=== PATIENT | female | born 1990 | race Caucasian/White ===

== ENCOUNTER 2017-02-05 11:21 | Emergency (ER) ==
[2017-02-05 11:33] VITALS: BP 143/85; TEMP 101.3; BMI 38.8
[2017-02-05 11:59] LABS: BASOPHILS % (AUTO) 0.5 % (0.0-3.0); EOSINOPHILS % (AUTO) 0.5 % (0.0-7.0); HEMATOCRIT 31.6 % (37.0-47.0); HEMOGLOBIN 10.8 g/dl (12.0-16.0); IMMATURE GRANULOCYTE % (AUTO) 0.8 % (0.0-5.0); LYMPHOCYTES # (AUTO) 0.4 K/uL (0.60-3.4); LYMPHOCYTES % (AUTO) 11.8 (10.0-50.0); MEAN CORPUSCULAR HEMOGLOBIN 27.7 pg (27.0-31.0); MEAN CORPUSCULAR HGB CONC 34.2 (31.8-35.4); MONOCYTES # (AUTO) 0.4 K/uL (0.4-2.0); MONOCYTES % (AUTO) 11.2 (0-10); NEUTROPHILS # (AUTO) 2.7 K/ul (2.0-6.9); NEUTROPHILS % (AUTO) 75.2; PLATELET COUNT 189 10^3/uL (140-440); WHITE BLOOD COUNT 3.65 K/ul (4.6-10.2)
[2017-02-05 12:08] LABS: BILIRUBIN,URINE Negative (NEGATIVE); KETONES,URINE Negative (NEGATIVE); LEUKOCYTE ESTERASE ,URINE Negative (NEGATIVE); NITRITE,URINE Negative (NEGATIVE); PH,URINE 8.5 (5-9); PROTEIN,URINE Negative (NEGATIVE); URINE, BLOOD Negative (NEGATIVE)
[2017-02-05 12:09] LABS: ADD URINE MICROSCOPIC NO; URINE PREGNANCY INTERNAL QC INTERNAL QC VALID
[2017-02-05 12:13] LABS: FLU INTERNAL QC INTERNAL QC VALID; RAPID FLU A NEGATIVE (NEGATIVE); RAPID FLU B NEGATIVE (NEGATIVE)
[2017-02-05 12:16] LABS: ALBUMIN 3.6 g/dL (3.4-5.0); ALBUMIN/GLOBULIN RATIO 0.95; ANION GAP 12.9; BILIRUBIN,TOTAL 0.41 mg/dL (0.00-1.20); BUN/CREATININE RATIO 9.58; CREATININE 0.73 mg/dL (0.60-1.30); POTASSIUM 3.9 mmol/L (3.5-5.10); TOTAL PROTEIN 7.4 g/dL (6.4-8.2)
--- NOTE | 2017-02-05 12:39 | DI ---
EXAM: Chest two view, frontal and lateral views. HISTORY: Cough. COMPARISON: 12/26/2012. FINDINGS: The heart size is normal. There is no pulmonary vascular congestion. The lungs are clear save for calcified granulomatous changes. No pleural effusion or pneumothorax is seen. No acute os seous abnormality identified. Since the prior study, there has been no significant interval change. IMPRESSION: No acute cardiopulmonary process.
--- NOTE | 2017-02-05 12:46 | ED.PDOC ---
General ED Provider: Dr. BRIANDA JIMENEZ Chief Complaint: Fever Stated Complaint: fever , cough , chills Time Seen by Physician: 11:30 Mode of Arrival: Walk-In Information Source: Patient Exam Limitations: No limitations [facility] Nursing and Triage Documentation Reviewed and Agree: Yes Respiratory Complaint Exam - Shortness of Air Complaint/Exam Symptoms Are: Resolved Initial Severity: Mild Current Severity: None Aggravating: Reports: None Alleviating: Reports: None History of Healthcare-Acquired Pneumonia: No Pulmonary Embolism Risk Factors: Reports: None Cardiac Risk Factors: Reports: None Pseudomonas Risk Factors: Reports: None Tuberculosis Risk Factors: Reports: None Home Oxygen Use: No Recent Stress Test: No Recent Echo/LV Function: No Respiratory Distress: None Stridor Present: No Tracheal Deviation: No Subcutaneous Emphysema: No Accessory Muscle Use: No Retractions: Not Present Diminished Breath Sounds: No Prolonged Expiratory Phase: No Unable to Speak Full Sentences: No Fatigue: No Leg Swelling: No Johnathon's Sign Present: No Grunting Respirations: No Kussmaul Respirations: No Differential Diagnoses: Pneumonia, Bronchitis Review of Systems - Review Of Systems Constitutional: Reports: No symptoms Eyes: Reports: No symptoms Ears, Nose, Mouth, Throat: Reports: No symptoms Respiratory: Reports: Cough Cardiac: Reports: No symptoms GI: Reports: No symptoms : Reports: No symptoms Musculoskeletal: Reports: No symptoms Skin: Reports: No symptoms Neurological: Reports: No symptoms Endocrine: Reports: No symptoms Hematologic/Lymphatic: Reports: No symptoms All Other Systems: Reviewed and Negative Past Medical History - Past Medical History Previously Healthy: Yes Endocrine: Reports: None Cardiovascular: Reports: None Respiratory: Reports: None Hematological: Reports: None Gastrointestinal: Reports: None Genitourinary: Reports: None Neuro/Psych: Reports: None Musculoskeletal: Reports: None Cancer: Reports: None Last Menstrual Period: 2.5 weeks ago, IUD - Surgical History General Surgical History: Reports: Unknown - Family History Family History: Reports: Unknown - Social History Smoking Status: Former smoker Hx Substance Use: No Alcohol Screening: None Physical Exam - Physical Exam Appearance: Well-appearing, No pain distress, Well-nourished Eyes: JACE, EOMI, Conjunctiva clear ENT: Ears normal, Nose normal, Oropharynx normal Respiratory: Airway patent, Breath sounds clear, Breath sounds equal, Respirations nonlabored Cardiovascular: RRR, Pulses normal, No rub, No murmur GI/: Soft, Nontender, No masses, Bowel sounds normal, No Organomegaly Musculoskeletal: Normal strength, ROM intact, No edema, No calf tenderness Skin: Warm, Dry, Normal color Neurological: Sensation intact, Motor intact, Reflexes intact, Cranial nerves intact, Alert, Oriented Psychiatric: Affect appropriate, Mood appropriate Interpretation - Radiology Interpretation Radiology Interpretation By: Radiologist Radiology Results: No acute changes Critical Care Note - Critical Care Note Total Time (mins): 0 Course - Course Hematology/Chemistry: 02/05/17 11:50 02/05/17 11:50 Orders, Labs, Meds: Lab Review 02/05/17 02/05/17 02/05/17 11:45 11:45 11:45 WBC RBC Hgb Hct MCV MCH MCHC RDW Coeff of Juan Plt Count Immature Gran % (Auto) Neut % (Auto) Lymph % (Auto) [place] % (Auto) Eos % (Auto) Baso % (Auto) Immature Gran # (Auto) Neut # Lymph # [place] # Eos # Baso # Sodium Potassium Chloride Carbon Dioxide Anion Gap BUN Creatinine Estimated GFR (MDRD) BUN/Creatinine Ratio Glucose Lactic Acid Calcium Total Bilirubin AST ALT Alkaline Phosphatase Total Protein Albumin Globulin Albumin/Globulin Ratio Procalcitonin Urine Color Yellow Urine Clarity Clear Urine pH 8.5 Ur Specific [place] 1.020 Urine Protein Negative Urine Glucose (UA) Negative Urine Ketones Negative Urine Blood Negative Urine Nitrite Negative Urine Bilirubin Negative Urine Urobilinogen 0.2 Ur Leukocyte Esterase Negative Urine Test Negative Influenza A (Rapid) Negative Influenza B (Rapid) Negative 02/05/17 02/05/17 02/05/17 11:50 11:50 11:50 WBC 3.65 L RBC 3.90 L Hgb 10.8 L Hct 31.6 L MCV 81.0 MCH 27.7 MCHC 34.2 RDW Coeff of Juan 13.4 Plt Count 189 Immature Gran % (Auto) 0.8 Neut % (Auto) 75.2 Lymph % (Auto) 11.8 [place] % (Auto) 11.2 H Eos % (Auto) 0.5 Baso % (Auto) 0.5 Immature Gran # (Auto) 0.0 Neut # 2.7 Lymph # 0.4 L [place] # 0.4 Eos # 0.0 Baso # 0.0 Sodium 137 Potassium 3.9 Chloride 105 Carbon Dioxide 23 Anion Gap 12.9 BUN 7 Creatinine 0.73 Estimated GFR (MDRD) 95.00 BUN/Creatinine Ratio 9.58 Glucose 102 Lactic Acid 6.5 Calcium 9.0 Total Bilirubin 0.41 AST 61 H ALT 81 H Alkaline Phosphatase 122 H Total Protein 7.4 Albumin 3.6 Globulin 3.8 Albumin/Globulin Ratio 0.95 Procalcitonin Urine Color Urine Clarity Urine pH Ur Specific [place] Urine Protein Urine Glucose (UA) Urine Ketones Urine Blood Urine Nitrite Urine Bilirubin Urine Urobilinogen Ur Leukocyte Esterase Urine Test Influenza A (Rapid) Influenza B (Rapid) 02/05/17 11:50 WBC RBC Hgb Hct MCV MCH MCHC RDW Coeff of Juan Plt Count Immature Gran % (Auto) Neut % (Auto) Lymph % (Auto) [place] % (Auto) Eos % (Auto) Baso % (Auto) Immature Gran # (Auto) Neut # Lymph # [place] # Eos # Baso # Sodium Potassium Chloride Carbon Dioxide Anion Gap BUN Creatinine Estimated GFR (MDRD) BUN/Creatinine Ratio Glucose Lactic Acid Calcium Total Bilirubin AST ALT Alkaline Phosphatase Total Protein Albumin Globulin Albumin/Globulin Ratio Procalcitonin 0.06 Urine Color Urine Clarity Urine pH Ur Specific [place] Urine Protein Urine Glucose (UA) Urine Ketones Urine Blood Urine Nitrite Urine Bilirubin Urine Urobilinogen Ur Leukocyte Esterase Urine Test Influenza A (Rapid) Influenza B (Rapid) Orders Category Date Time Status BLOOD CULTURE Stat LAB 02/05/17 12:18 Received CBC W/ AUTO DIFF Stat LAB 02/05/17 11:50 Completed COMPREHENSIVE METABOLIC PANEL Stat LAB 02/05/17 11:50 Completed HEPATITIS PANEL, ACUTE Stat LAB 02/05/17 11:50 Received LACTIC ACID Stat LAB 02/05/17 11:50 Completed MOLECULAR GROUP A STREP Stat LAB 02/05/17 11:45 Results PROCALCITONIN Stat LAB 02/05/17 11:50 Completed RAPID FLU A/B Stat LAB 02/05/17 11:45 Completed STREP SCREEN Stat LAB 02/05/17 11:45 Results URINALYSIS C & S IF INDICATED Stat LAB 02/05/17 11:45 Completed URINE Stat LAB 02/05/17 11:45 Completed CHEST, 2 VIEWS PA & LAT Stat RADS 02/05/17 11:38 Completed Vital Signs: Temp Pulse Resp BP Pulse Ox 02/05/17 11:29 101.3 F H 111 H 18 143/85 H 97 Departure - Departure Time of Disposition: 12:45 (nurses were present at bedside ) Disposition: HOME SELF-CARE Discharge Problem: Viral syndrome, Abnormal liver function tests Instructions: Viral Syndrome (ED) Condition: Good Pt referred to PMD for follow-up: Yes Additional Instructions: Please call your Family Physician as soon as possible to schedule a follow-up appointment. Allergies/Adverse Reactions: Allergies Sulfa (Sulfonamide Antibiotics) Allergy (Severe, Verified 02/05/17 11:34) ITCHING ALL OVER codeine Adverse Reaction (Verified 02/05/17 11:34) Penicillins Adverse Reaction (Verified 02/05/17 11:34) tioconazole [From Monistat 1 (tioconazole)] Adverse Reaction (Verified 02/05/17 11:34) Swelling Home Medications: Ambulatory Orders 1 [No Reported Medications] 02/05/17
== END 2017-02-05 12:54 | disposition home or self-care (01) ==
LOC: ED 11:21
DX: B34.9 Viral infection, unspecified (principal); R94.5 Abnormal results of liver function studies
CPT/HCPCS: 36415; 80053; 80074; 81001; 81025; 83605; 84145; 85025; 87040; 87651; 87804; 87880; 99282

== ENCOUNTER 2017-02-21 09:24 | Outpatient (CLI) ==
[2012-10-19 17:09] VITALS: TEMP 96.8
--- NOTE | 2017-02-21 10:01 | US ---
EXAM: Ultrasound abdomen limited. HISTORY: Elevated liver enzymes. COMPARISON: None available. TECHNIQUE: Abdominal, real time with image documentation: limited (eg, single organ, quadrant, foll ow-up) FINDINGS: The liver demonstrates homogeneous echotexture without intrahepatic biliary dilatation. P ortal venous flow is normal in direction. The gallbladder is without shadowing stones, wall thickeni ng or pericholecystic fluid. Common duct measures approximately 0.3 cm. Visualized portions of the pancreas are unremarkable. IMPRESSION: No sonographic abnormality of the liver, gallbladder or biliary system.
== END 2017-02-21 09:25 | disposition home or self-care (01) ==
LOC: RAD 09:24
PROVIDERS: ATTEND Nurse Practitioner Family
DX: R79.89 Other specified abnormal findings of blood chemistry (principal)

== ENCOUNTER 2017-02-26 14:34 | Outpatient (CLI) ==
[2012-10-19 17:09] VITALS: TEMP 96.8
[2017-02-26 14:45] LABS: BASOPHILS # (AUTO) 0.1 K/uL (0-0.2); BASOPHILS % (AUTO) 0.7 % (0.0-3.0); EOSINOPHILS # (AUTO) 0.2 K/ul (0.0-0.7); EOSINOPHILS % (AUTO) 2.4 % (0.0-7.0); HEMOGLOBIN 10.9 g/dl (12.0-16.0); IMMATURE GRANULOCYTE % (AUTO) 0.7 % (0.0-5.0); IMMATURE RETIC FRACTION 22.5; LYMPHOCYTES # (AUTO) 2.2 K/uL (0.60-3.4); LYMPHOCYTES % (AUTO) 32.2 (10.0-50.0); MEAN CORPUSCULAR HEMOGLOBIN 27.3 pg (27.0-31.0); MEAN CORPUSCULAR VOLUME 82.7 fl (81.0-99.0); MONOCYTES # (AUTO) 0.4 K/uL (0.4-2.0); MONOCYTES % (AUTO) 5.8 (0-10); NEUTROPHILS # (AUTO) 3.9 K/ul (2.0-6.9); NEUTROPHILS % (AUTO) 58.2; PLATELET COUNT 291 10^3/uL (140-440); RED BLOOD COUNT 3.99 10^6/ul (4.20-5.40); RETICULOCYTE % 2.18 %; WHITE BLOOD COUNT 6.67 K/ul (4.6-10.2)
[2017-02-26 16:42] LABS: ALBUMIN 3.6 g/dL (3.4-5.0); ALBUMIN/GLOBULIN RATIO 1.03; ANION GAP 12.8; BILIRUBIN,TOTAL 0.45 mg/dL (0.00-1.20); BUN/CREATININE RATIO 12.65; CREATININE 0.79 mg/dL (0.60-1.30); FERRITIN 15.67 ng/mL (4.63-204.00); FOLATE 9.4 ng/mL (3.1-20.5); POTASSIUM 3.8 mmol/L (3.5-5.10); TOTAL PROTEIN 7.1 g/dL (6.4-8.2)
[2017-02-27 06:11] LABS: GAMMA GLUTAMYL TRANSFERASE 28 IU/L (0-60)
[2017-02-27 07:21] LABS: TRANSFERRIN 266 mg/dL (200-370)
== END 2017-02-26 14:35 | disposition home or self-care (01) ==
LOC: LAB 14:34
PROVIDERS: ATTEND Nurse Practitioner Family
DX: R79.89 Other specified abnormal findings of blood chemistry (principal); R89.9 Unspecified abnormal finding in specimens from other organs, systems and tissues; Z86.2 Personal history of diseases of the blood and blood-forming organs and certain disorders involving the immune mechanism
CPT/HCPCS: 36415; 80053; 82607; 82728; 82746; 82977; 83540; 83550; 84466; 85025; 85045

== ENCOUNTER 2018-08-23 07:13 | Emergency (ER) ==
[2018-08-23 07:17] VITALS: BP 134/89; TEMP 96.9; BMI 37.5
--- NOTE | 2018-08-23 07:29 | ED.PDOC ---
General ED Provider: Dr. SO SHIRLEY Chief Complaint: Respiratory Complaint Stated Complaint: Coughing. Onset X 1 week. Associated sneezing. Stated coughinng excessively and became short of breath and at one point felt she lost her breath. States she coughed so hard she may have "passed out brefly. Patient stated this morning started coughing again with similar symptoms. Went down on the floor. May have passed out a "few seconds". She states that cough is prod. of [id number] phlegm. nasal drainage is clear. Time Seen by Physician: 07:20 Mode of Arrival: Walk-In Information Source: Patient Exam Limitations: No limitations Primary Care Provider: STEFANO ALMENDAREZ Nursing and Triage Documentation Reviewed and Agree: Yes Does patient meet sepsis criteria?: No System Inflammatory Response Syndrome: Not Applicable Sepsis Protocol: For patient's 13 years and over: Temp is 96.8 and below OR 101 and greater Pulse >90 BPM Resp >20/minute Acutely Altered Mental Status Are patient's symptoms suggestive of a new infection, such as: -Pneumonia -Skin, Soft Tissue -Endocarditis -UTI -Bone, Joint Infection -Implantable Device -Acute Abdominal Infection -Wound Infection -Meningitis -Blood Stream Catheter Infection -Unknown Respiratory Complaint Exam - Respiratory Complaint/Exam Onset/Duration: 1 week Symptoms Are: Still present Timing: Intermittent Initial Severity: Mild Current Severity: Moderate Location: Throat, Chest Character: Reports: Productive cough Aggravating: Reports: None Alleviating: Reports: None Associated Signs and Symptoms: Reports: Dizziness, URI. Denies: Rapid breathing , Dyspnea, Fever, Chills, Chest pain, Pleuritic chest pain, Wheezing, Hemoptysis , Calf pain, Calf swelling, Edema, Nasal congestion, Hoarseness, Sinus discomfort, Vomiting, Sore throat, Weight loss, Decreased oral intake, Increased thirst, Increased appetite, Increased urination Related History: Denies: Similar episode, Allergic reaction, Seasonal allergies , MRSA, VRE History of Healthcare-Acquired Pneumonia: No Related Surgical History: Reports: None Pulmonary Embolism Risk Factors: None Cardiac Risk Factors: Reports: None Pseudomonas Risk Factors: Reports: None Tuberculosis Risk Factors: Reports: None Status Asthmaticus Risk Factors: Reports: None Home Oxygen Use: No Recent Stress Test: No Recent Echo/LV Function: No Current Asthma Medication Use: No Respiratory Distress: None Inadequate Respiratory Effort: No Dysphagia Present: No Stridor Present: No JVD Present: No Accessory Muscle Use: No Retractions: Not Present Diminished Breath Sounds: No Sinus Tenderness: None Grunting Respirations: No Kussmaul Respirations: No Differential Diagnoses: Bronchospasm, Laryngospasm, URI Review of Systems - Review Of Systems Constitutional: Reports: No symptoms Eyes: Reports: No symptoms Ears, Nose, Mouth, Throat: Reports: No symptoms Respiratory: Reports: Cough Cardiac: Reports: No symptoms GI: Reports: No symptoms : Reports: No symptoms Musculoskeletal: Reports: No symptoms Skin: Reports: No symptoms Neurological: Reports: No symptoms Endocrine: Reports: No symptoms Hematologic/Lymphatic: Reports: No symptoms All Other Systems: Reviewed and Negative Past Medical History - Past Medical History Previously Healthy: Yes Endocrine: Reports: None Cardiovascular: Reports: None Respiratory: Reports: None Hematological: Reports: None Gastrointestinal: Reports: None Genitourinary: Reports: None Neuro/Psych: Reports: None Musculoskeletal: Reports: None Cancer: Reports: None Last Menstrual Period: 2 days ago - Surgical History General Surgical History: Reports: Unknown - Family History Family History: Reports: Unknown - Social History Smoking Status: Current some day smoker Hx Substance Use: No Alcohol Screening: None Physical Exam - Physical Exam Appearance: Well-appearing, No pain distress, Well-nourished Ill-appearing: None Pain Distress: None Eyes: JACE, EOMI, Conjunctiva clear ENT: Ears normal, Nose normal, Oropharynx normal Respiratory: Airway patent, Breath sounds clear, Breath sounds equal, Respirations nonlabored Cardiovascular: RRR, Pulses normal, No rub, No murmur GI/: Soft, Nontender, No masses, Bowel sounds normal, No Organomegaly Musculoskeletal: Normal strength, ROM intact, No edema, No calf tenderness Skin: Warm, Dry, Normal color Neurological: Sensation intact, Motor intact, Reflexes intact, Cranial nerves intact, Alert, Oriented Psychiatric: Affect appropriate, Mood appropriate Critical Care Note - Critical Care Note Total Time (mins): 0 Course - Course Hematology/Chemistry: 08/23/18 07:43 08/23/18 07:43 Orders, Labs, Meds: Lab Review 08/23/18 08/23/18 08/23/18 07:40 07:43 07:43 WBC 7.50 RBC 4.06 L Hgb 11.5 L Hct 34.7 L MCV 85.5 MCH 28.3 MCHC 33.1 RDW Coeff of Juan 13.1 Plt Count 258 Immature Gran % (Auto) 0.5 Neut % (Auto) 47.4 Lymph % (Auto) 41.2 [place] % (Auto) 7.3 Eos % (Auto) 3.1 Baso % (Auto) 0.5 Immature Gran # (Auto) 0.0 Neut # (Auto) 3.6 Lymph # (Auto) 3.1 [place] # (Auto) 0.6 Eos # (Auto) 0.2 Baso # (Auto) 0.0 Sodium 140.2 Potassium 3.95 Chloride 105.0 Carbon Dioxide 26.9 Anion Gap 12.25 BUN 13.6 Creatinine 0.74 Estimated GFR (MDRD) 93.00 BUN/Creatinine Ratio 18.37 Glucose 101.2 Calcium 8.70 Total Bilirubin 0.40 AST 34.6 ALT 51.7 H Alkaline Phosphatase 90.1 Total Protein 7.27 Albumin 4.47 Globulin 2.80 Albumin/Globulin Ratio 1.59 Influ A Molecular Assay Negative by naat Influ B Molecular Assay Negative by naat Orders Category Date Time Status EKG-(ED ONLY) Stat CARDIO 08/23/18 07:34 Completed CBC W/ AUTO DIFF Stat LAB 08/23/18 07:43 Completed CMP [COMPREHENSIVE METABOLIC PANEL] Stat LAB 08/23/18 07:43 Completed FLU A & B MOLECULAR [FLU A/B MOLECULAR] Stat LAB 08/23/18 07:40 Completed RAPID STREP SCREEN [MOLECULAR GROUP A STREP] Stat LAB 08/23/18 07:40 Completed CHEST, 2 VIEWS PA & LAT Stat RADS 08/23/18 07:34 Completed Vital Signs: Temp Pulse Resp BP Pulse Ox 08/23/18 07:13 96.9 F L 88 20 134/89 97 Departure - Departure Time of Disposition: 08:48 Disposition: HOME SELF-CARE Discharge Problem: URI (upper respiratory infection), Coughing Discharge Problem: (Ruled Out): Bronchospasm Instructions: Antitussive/Expectorant (By mouth), Upper Respiratory Infection ( ED) Condition: Good Pt referred to PMD for follow-up: Yes IPMP verified?: No Additional Instructions: Stay well hydrated Take Robitussin DM 2 tsp every 4 hrs for coughing Follow up pcp in 1 wk or prn Prescriptions: Azithromycin [Zithromax] 250 mg PO DAILY #6 tablet Allergies/Adverse Reactions: Allergies Sulfa (Sulfonamide Antibiotics) Allergy (Severe, Verified 08/23/18 07:18) ITCHING ALL OVER codeine Adverse Reaction (Verified 08/23/18 07:18) Penicillins Adverse Reaction (Verified 08/23/18 07:18) tioconazole [From Monistat 1 (tioconazole)] Adverse Reaction (Verified 08/23/18 07:18) Swelling Home Medications: Ambulatory Orders Azithromycin [Zithromax] 250 mg PO DAILY #6 tablet 08/23/18 Disposition Discussed With: Patient, Family
--- NOTE | 2018-08-23 08:09 | DI ---
EXAM: PA and lateral views of the chest HISTORY: Cough and congestion COMPARISON: Chest x-ray 02/05/2017 and multiple priors FINDINGS: The cardiomediastinal silhouette is normal. There is a calcified right mediastinal lymph node. There is no pneumothorax or pleural effusion. There is no consolidation, nodule or mass. The osseous structures are unremarkable. IMPRESSION: No acute cardiopulmonary process
== END 2018-08-23 09:45 | disposition home or self-care (01) ==
LOC: ED 07:13
DX: R05 Cough (principal); R06.02 Shortness of breath; R42 Dizziness and giddiness; J06.9 Acute upper respiratory infection, unspecified; Z72.0 Tobacco use
CPT/HCPCS: 36415; 80053; 85025; 87502; 87651; 93005; 93010; 99283